=== PATIENT | male | born 1995 | race African-American/Black ===

== ENCOUNTER 2022-10-07 04:43 | Emergency (ER) | payer MEDICAID ==
[~2022-10-07] VITALS: Ht 195.6 cm; Wt 91.0 kg
[2022-10-07] MEDS ORDERED: ONDANSETRON HCL 4MG/2ML INJ IV STA (07:35)
[2022-10-07] MEDS ORDERED: KETOROLAC 30MG/ML VIAL IV STA (07:35)
[2022-10-07] MEDS ORDERED: SODIUM CHLORIDE 0.9% 1,000 ML IV ONE (07:45)
[2022-10-07 08:43] LABS: CHLORIDE 110 mEq/L (98-107)
[2022-10-07 08:51] LABS: BASOPHILS % 0.2 % (0.0-2.0); EOSINOPHILS % 0.1 % (0.0-5.0); HEMOGLOBIN. 13.8 g/dL (14.0-18.0); LYMPHOCYTES % 8.8 % (20.0-50.0); MEAN CORPUSCULAR HEMOGLOBIN 29.3 pg (28.0-32.0); MEAN CORPUSCULAR VOLUME 88.9 fL (80.0-94.0); MEAN PLATELET VOLUME 9.3 fl (7.4-10.4); MONOCYTES % 8.6 % (2.0-8.0); NEUTROPHILS % 82.3 % (40.0-76.0); PLATELET 162 x1000/uL (130-400); RED BLOOD CELL COUNT 4.72 mill/uL (4.7-6.1)
[2022-10-07] MEDS ORDERED: IOHEXOL-300 100 ML BOTTLE ONE (09:49)
[2022-10-07] MEDS ORDERED: HYDROCODONE/ACETAMINOPHEN 5/325MG TABLET PO ONE (11:00)
[2022-10-07] MEDS ORDERED: ONDANSETRON 4MG ODT PO ONE (11:00)
[2022-10-07] MEDS ORDERED: ONDA4TAB50 MT (11:07)
[2022-10-07 11:17] VITALS: BP 114/73
== END 2022-10-07 11:37 | disposition home or self-care (01) ==
LOC: ER 04:43
DX: R10.32 Left lower quadrant pain (principal); Z98.890 Other specified postprocedural states
CPT/HCPCS: 36415; 74177; 80053; 85025; 96361; 96374; 96375; 99285; J1885; J2405; J7030; Q0162; Q9967